=== PATIENT | female | born 1985 | race Two or more races ===

== ENCOUNTER 2023-02-02 05:56 | Day surgery (SDC) | payer OTHER ==
[~2023-02-02] VITALS: Ht 170.2 cm; Wt 74.4 kg
[2023-02-02] MEDS ORDERED: MIDAZOLAM 2 MG/2 ML VIAL ONE (08:06)
[2023-02-02] MEDS ORDERED: fentaNYL citrate 0.05 MG/ML VIAL ONE (08:06)
[2023-02-02] MEDS ORDERED: FERRIC SUBSULFATE 20%-22%-8 ML PASTE ONE (08:08)
[2023-02-02] MEDS ORDERED: POTASSIUM IODIDE/IODINE 5% 14 ML BTL ONE (08:08)
[2023-02-02] MEDS ORDERED: ONDANSETRON 4 MG/2 ML VIAL ONE (08:11)
[2023-02-02] MEDS ORDERED: METOCLOPRAMIDE 10 MG/2 ML INJ VIAL ONE (08:11)
[2023-02-02] MEDS ORDERED: LIDOCAINE MPF 2% 100 MG/5 ML VIAL INJ ONE (08:12)
[2023-02-02] MEDS ORDERED: PROPOFOL 200 MG/20 ML VIAL IV ONE (08:12)
[2023-02-02] MEDS ORDERED: SEVOFLURANE 250 ML BTL INH ONE (08:15)
[2023-02-02] MEDS ORDERED: CONJUGATED ESTROGENS VAG CREAM 42 GM TUBE VG SCH (09:00)
[2023-02-02] MEDS ORDERED: HYDROmorphone 1 MG/ML AMP IVP PRN (09:15)
[2023-02-02] MEDS ORDERED: ONDANSETRON 4 MG/2 ML VIAL IVP PRN (09:15)
[2023-02-02] MEDS ORDERED: diphenhydrAMINE 50 MG/ML VIAL IVP PRN (09:15)
[2023-02-02] MEDS ORDERED: LACTATED RINGERS 1,000 ML IV SCH (09:15)
== END 2023-02-02 10:40 | disposition home or self-care (01) ==
LOC: MOR 05:56 → MMU 06:23 → MOR 10:40
PROVIDERS: ATTEND Obstetrics & Gynecology
DX: D06.9 Carcinoma in situ of cervix, unspecified (principal); F41.9 Anxiety disorder, unspecified
CPT/HCPCS: 57522; J2001; J2250; J2405; J2704; J2765; J3010